=== PATIENT | female | born 1990 | race Two or more races ===

== ENCOUNTER 2024-02-08 14:32 | Emergency (ER) | payer OTHER ==
[~2024-02-08] VITALS: Ht 162.6 cm; Wt 77.1 kg
[2024-02-08] MEDS: diphenhydrAMINE HCL 50 MG/ML VIAL IV ONE (15:55)
[2024-02-08] MEDS: methylPREDNISolone SOD SUCC 125 MG/2ML VIAL IV ONE (16:00)
[2024-02-08] MEDS: FAMOTIDINE/PF INJ 20 MG/2 ML VIAL IV ONE (16:02)
[2024-02-08] MEDS: IV NS 0.9% 1,000 ML BAG IV ONE (16:03)
[2024-02-08] MEDS ORDERED: diphenhydrAMINE HCL 50 MG/ML VIAL ONE (16:23)
[2024-02-08] MEDS ORDERED: FAMOTIDINE/PF INJ 20 MG/2 ML VIAL IV ONE (16:23)
[2024-02-08] MEDS ORDERED: methylPREDNISolone SOD SUCC 125 MG/2ML VIAL ONE (16:23)
[2024-02-08] MEDS ORDERED: FAMO20TA80 PO (17:06)
[2024-02-08] MEDS ORDERED: PRED20TA PO (17:06)
[2024-02-08] MEDS ORDERED: DIPH25CA83 PO (17:06)
[2024-02-08 17:23] VITALS: BP 120/73; TEMP 98.6; O2SAT 99
== END 2024-02-08 17:15 | disposition home or self-care (01) ==
LOC: ER 14:39
DX: L50.9 Urticaria, unspecified (principal)
CPT/HCPCS: 99284; 96374; 96375; 96361; J1200; J3490; J2919; J7030